=== PATIENT | female | born 1945 | race Caucasian/White ===

== ENCOUNTER → 2016-06-07 10:00 | Outpatient (CLI) | payer MEDICARE, BC ==
--- NOTE | 2016-06-11 07:16 | EEG ---
PATIENT:PARIS ALEXANDER DATE OF SERVICE: 06/07/16 MEDICAL RECORD: [id number] DATE OF : 41 LOCATION: [facility] ADMISSION DATE: 06/07/16 REFERRING PHYSICIAN: INTERPRETING PHYSICIAN: LASHONDA NEW MD DATE OF SERVICE: 06/07/2016 Electroencephalographic Report Referred as an outpatient by myself. ELECTROENCEPHALOGRAM NUMBER: [id number] DATE OF EXAMINATION: 06/07/2016 at 10:50 a.m. TECHNICAL DATA: This electroencephalographic recording consists of approximately 20 minutes of data collection utilizing the international 10/20 system of electrode placement and both referential and non-referential montages. Sixteen channels of electrocerebral recording are accompanied by a 17th channel dedicated to the electrocardiographic rhythm and 2 channels of electromyographic recording. Recording is performed in the awake and drowsy states utilizing activation by hyperventilation and photic stimulation. ELECTROENCEPHALOGRAPHIC DATA: The awake state comprises approximately 70% of the recorded electrocerebral activity. Electromyographic artifact is prominent and rapid eye movements are seen. The posterior dominant background consists of a well-developed symmetric, semi-arrhythmic waxing and waning alpha activity of 10-11 Hz, which is suppressed by eye opening. The drowsy state comprises the remaining portion of the recorded electrocerebral activity. Electromyographic artifact is diminished and rapid eye movements are not seen. The posterior dominant background is relatively suppressed. No abnormal or focal slowing is identified. No epileptiform discharges are seen. Hyperventilation and photic stimulation induced no abnormal change in the recorded electrocerebral activity. INTERPRETATION: Normal (awake and drowsy). This is a normal electroencephalographic recording. TRANSINT:[id number] Voice Confirmation ID: [id number] DOCUMENT ID: [id number] LASHONDA NEW MD at 0716 CC: [id number] DICTATION DATE: 06/08/16 0623 TAG MARKER: 06/08/16 1845 [facility] CLI 06/07/16 [place] [id number] [place] [id number]
== END | disposition home or self-care (01) ==
LOC: D.CN 06-06 10:00 → D.MRI 06-06 11:30 → D.CN 10:00
DX: M54.16 Radiculopathy, lumbar region (principal); R55 Syncope and collapse; M47.16 Other spondylosis with myelopathy, lumbar region; V46.5XXA Car driver injured in collision with other nonmotor vehicle in traffic accident, initial encounter

== ENCOUNTER → 2016-06-14 14:02 | Outpatient (CLI) | payer MEDICARE, BC | END | disposition home or self-care (01) | LOC: D.CT 14:02 | DX: R93.49 Abnormal radiologic findings on diagnostic imaging of other urinary organs (principal) ==

== ENCOUNTER → 2016-10-23 12:43 | Outpatient (CLI) | payer MEDICARE, BC | END | disposition home or self-care (01) | LOC: D.US 12:43 | DX: M47.16 Other spondylosis with myelopathy, lumbar region (principal); M54.16 Radiculopathy, lumbar region; I70.219 Atherosclerosis of native arteries of extremities with intermittent claudication, unspecified extremity; M79.661 Pain in right lower leg; M79.662 Pain in left lower leg ==